=== PATIENT | male | born 2000 | race Two or more races ===

== ENCOUNTER 2023-07-01 12:27 | Emergency (ER) | payer MEDICAID, OTHER ==
[~2023-07-01] VITALS: Ht 177.8 cm; Wt 111.8 kg
[2023-07-01 12:41] VITALS: BP 129/84; PULSE 110; RESP 20; TEMP 97.8; O2SAT 98
[2023-07-01] MEDS ORDERED: cefTRIAXone SOD 1,000 MG VL IM ONE (14:00)
[2023-07-01] MEDS ORDERED: methylPREDNISolone SOD SUCC 125 MG/2 ML VL IM ONE (14:00)
[2023-07-01] MEDS ORDERED: IBUP-1456 PO (14:15)
[2023-07-01] MEDS ORDERED: CEPH500C PO (14:15)
== END 2023-07-01 14:45 | disposition home or self-care (01) ==
LOC: ER 12:27
DX: J03.90 Acute tonsillitis, unspecified (principal); I88.9 Nonspecific lymphadenitis, unspecified
CPT/HCPCS: 96372; 99284; J0696; J2930

== ENCOUNTER 2025-06-03 01:47 | Inpatient (IN) | payer MEDICAID ==
[~2025-06-03] VITALS: Ht 175.3 cm; Wt 120.0 kg
[~2025-06-03 01:47] MED LIST: CEPH500C PO; IBUP-1456 PO
--- NOTE | 2025-06-03 02:19 | ED.PDOC ---
GI ASSESSMENT HPI Comments 25-year-old male with no past medical history presented to the ER with a chief complaint of periumbilical abdominal pain for the past 4 hours, patient reports that he ate some spicy hot dog at around 5:00 p.m. and he started to experience periumbilical abdominal pain, had 2 episodes of vomiting and therefore came into ER. The vomitus was nonbloody. Patient reports that the abdominal pain is achy, denies fever or chills, denies constipation or diarrhea. Denies any sick contacts or traveling history. Denies smoking/drinking/drug use. Patient seen and examined. Periumbilical and lower abdominal tenderness to auscultation. Chief Complaint: Abdominal Pain Time Seen by MD: 02:09 Primary Care Provider: unknown Reviewed Notes: Nurses Notes Allergies: Coded Allergies: NO KNOWN ALLERGIES (Unverified , 03/02/18) Home Meds Active Scripts Ibuprofen (Ibuprofen) 800 Mg Tab, 1 TAB PO TID, #30 TAB Prov:JEREMY HUTCHINSON 07/01/23 Cephalexin Monohydrate (Cephalexin) 500 Mg Cap, 1 CAP PO QID, #32 CAP Prov:JEREMY HUTCHINSON 07/01/23 Information Source: Patient Mode of Arrival: Ambulatory Past Medical History PAST MEDICAL HISTORY: Denies Surgical History: Denies all surgeries Family History Family History: Reviewed,noncontributory to illness Social History Smoker: Non-Smoker Alcohol: Denies ETOH Use Drugs: Denies Drug Use Lives In: Home Constitutional: denies: chills, diaphoresis, fatigue, fever, malaise, sweats, weakness, others EENTM: denies: blurred vision, double vision, ear bleeding, ear discharge, ear drainage, ear pain, ear ringing, eye pain, eye redness, hearing loss, mouth pain, mouth swelling, nasal discharge, nose bleeding, nose congestion, nose pain, photophobia, tearing, throat pain, throat swelling, voice changes, others Respiratory: denies: cough, hemoptysis, orthopnea, SOB at rest, shortness of breath, SOB with excertion, stridor, wheezing, others Cardiovascular: denies: chest pain, dizzy spells, diaphoresis, Dyspnea on exertion, edema, irregular heart beat, left arm pain, lightheadedness, palpitations, PND, syncope, others Gastrointestinal: reports: abdominal pain, nausea, vomiting Genitourinary: denies: burning, dysuria, flank pain, frequency, hematuria, incontinence, penile discharge, penile sore, pain, testicle pain, testicle swelling, urgency, others Neurological: denies: dizziness, fainting, headache, left sided numbness, left sided weakness, numbness, paresthesia, pre-existing deficit, right sided numbness, right sided weakness, seizure, speech problems, tingling, tremors, weakness, others Musculoskeletal: denies: back pain, gout, joint pain, joint swelling, muscle pain, muscle stiffness, neck pain, others Integumetry: denies: bruises, change in color, change in hair/nails, dryness, laceration, lesions, lumps, rash, wounds, others Allergic/Immunocompromised: denies: Difficulty Healing, Frequent Infections, Hives, Itching, others Hematologic/Lymphatic: denies: anemia, blood clots, easy bleeding, easy bruising, swollen glands, others Endocrine: denies: excessive hunger, excessive sweating, excessive thirst, excessive urination, flushing, intolerance to cold, intolerance to heat, unexplained weight gain, unexplained weight loss, others Psychiatric: denies: anxiety, bipolar disorder, depression, hopeless, panic disorder, schizophrenia, sleepless, suicidal, others Physical Exam General Appearance: Mild Distress HEENT: Pharynx Normal Neck: NOT DONE Respiratory: No Accessory Muscle Use, No Respiratory Distress, Normal Breath Sounds Cardiovascular: No Edema, No Murmur Breast Exam: Deferred Gastrointestinal: Tenderness (Lower abdominal), Other (Hypoactive bowel sounds) Genitalia: Deferred Pelvic: Deferred Rectal: Deferred Extremities: No calf tenderness, Normal capillary refill, Normal inspection, Normal range of motion, Non-tender, No pedal edema Neurologic: NOT DONE Cerebellar Function: NOT DONE Reflexes: NOT DONE Skin: Dry Lymphatic: NOT DONE Was a procedure done? Was a procedure done?: No GI differential Dx Differential Diagnosis: Appendicitis, Cholecystitis, Gastritis/PUD, Gastroenteritis, UTI, Food Poisoning X-Ray, Labs, Meds, VS Vital Signs Date Time Temp Pulse Resp B/P (MAP) Pulse Ox O2 Delivery O2 Flow Rate FiO2 06/03/25 04:39 98.0 96 20 103/62 (76) 99 98.0 06/03/25 01:48 97.9 76 16 136/73 100 97.9 Lab Test 06/03/25 02:32 Range/Units White Blood Count 12.2 H 4.4-10.8 10^3/uL Red Blood Count 5.99 H 4.5-5.90 10^6/uL Hemoglobin 15.7 13.5-17.5 g/dL Hematocrit 46.5 41.0-53.0 % Mean Corpuscular Volume 77.6 L 80.0-100.0 fL Mean Corpuscular Hemoglobin 26.2 L 28.0-32.0 pg Mean Corpuscular Hemoglobin Concent 33.7 32.0-36.0 g/dL Red Cell Distribution Width 14.1 11.8-14.3 % Platelet Count 275 140-450 10^3/uL Mean Platelet Volume 7.9 6.9-10.8 fL Neutrophils (%) (Auto) 79.4 37.0-80.0 % Lymphocytes (%) (Auto) 13.4 10.0-50.0 % Monocytes (%) (Auto) 6.3 0.0-12.0 % Eosinophils (%) (Auto) 0.7 0.0-7.0 % Basophils (%) (Auto) 0.2 0.0-2.0 % Neutrophils # (Auto) 9.7 H 1.6-8.6 10 ^3/uL Lymphocytes # (Auto) 1.6 0.4-5.4 10 ^3/uL Monocytes # (Auto) 0.8 0-1.3 10 ^3/uL Eosinophils # (Auto) 0.1 0-0.8 10 ^3/uL Basophils # (Auto) 0 0-0.2 10 ^3/uL Nucleated Red Blood Cells 0.0 % Prothrombin Time Pending Prothrombin Time INR Pending Activated Partial Thromboplast Time Pending Sodium Level 142 136-145 mmol/L Potassium Level 3.7 3.5-5.1 mmol/L Chloride Level 103 98-107 mmol/L Carbon Dioxide Level 27 20-31 mmol/L Anion Gap 12 5-15 Blood Urea Nitrogen 12 9-23 mg/dL Creatinine 0.99 0.700-1.30 mg/dL Glomerular Filtration Rate Calc 108 >90 mL/min BUN/Creatinine Ratio 12.1 10.0-20.0 Serum Glucose 128 H 74-106 mg/dL Lactic Acid Level 1.7 0.4-2.0 mmol/L Calcium Level 9.9 8.7-10.4 mg/dL Total Bilirubin 0.6 0.2-1.0 mg/dL Aspartate Amino Transferase (AST) 37 13-40 U/L Alanine Aminotransferase (ALT) 87 H 7-40 U/L Alkaline Phosphatase 66 46-116 U/L Total Protein 7.7 5.7-8.2 g/dL Albumin 4.9 H 3.2-4.8 g/dL Lipase 27 12-53 U/L X-Ray, Labs, Meds, VS Comment CT abdomen shows 1. Findings are consistent with acute appendicitis. 2. No evidence of perforation or periappendiceal abscess. Images Reviewed?: Images reviewed and evaluated by me Time of 1ST Reevaluation: 03:00 Reevaluation 1ST: Unchanged Consultation: PCP Patient Education/Counseling: Diagnosis, Treatment Family Education/Counseling: No Family Present SEPSIS Sepsis Screen Date sepsis recognized/suspect: Jun 03, 2025 Time Sepsis recognized/suspect: 015 Recent Procedure: No On Antibiotic Therapy: No Respiratory Rate >20: No Heart Rate >90: No Temp<36 C (96.8 F) or >38.3 C: No SBP <90 or MAP <65 mmHG: No New Acute Mental Status Change: No Is the patient on CPAP, BIPAP,: No Physician Orders Ct Ab Pel Wo Con-No Oral Or Iv (06/03/25 03:19) * Surgical Consult (06/03/25 ) Type And Screen (06/03/25 04:09) PTPTT (06/03/25 04:10) Ceftriaxone 2gm/50ml (Rocephin 2gm/50ml) (06/03/25 04:15) Metronidazole 500mg/100ml (Flagyl 500mg/ (06/03/25 04:15) Npo (Nothing By Mouth) Diet (06/03/25 Breakfast) Sodium Chloride 0.9% (06/03/25 04:15) Paring Machine Operator (06/03/25 ) Vital Signs Date Time Temp Pulse Resp B/P (MAP) Pulse Ox O2 Delivery O2 Flow Rate FiO2 06/03/25 04:39 98.0 96 20 103/62 (76) 99 98.0 06/03/25 01:48 97.9 76 16 136/73 100 97.9 Laboratory Tests Test 06/03/25 02:32 Lactic Acid Level 1.7 mmol/L (0.4-2.0) White Blood Count 12.2 10^3/uL (4.4-10.8) H Departure 1 Departure Time of Disposition: 04:55 Impression: Primary Impression: Appendicitis Disposition: 09 ADMITTED INPATIENT Condition: Stable Comments Patient admitted for further workup and surgical evaluation for acute appendicitis Medical management-IV NS, IV ceftriaxone 2 g given, metronidazole IV 500 mg NPO/type and screen/PT/PTT pending Critical Care Note Critical Care Time?: No Stability Stability form required: PETRA Nash RESIDENT Jun 03, 2025 02:19
[2025-06-03 02:56] LABS: Hemoglobin 15.7 g/dL (13.5-17.5)
[2025-06-03 02:59] LABS: Hematocrit 46.5 % (41.0-53.0); Mean Corpuscular Hemoglobin 26.2 pg (28.0-32.0); Mean Corpuscular Volume 77.6 fL (80.0-100.0); Nucleated Red Blood Cells % 0.0 %
[2025-06-03 03:11] LABS: Alkaline Phosphatase 66 U/L (46-116); Anion Gap 12 (5-15); BUN/Creatinine Ratio 12.1 (10.0-20.0); Bilirubin, Total 0.6 mg/dL (0.2-1.0); Blood Urea Nitrogen 12 mg/dL (9-23); Calcium 9.9 mg/dL (8.7-10.4); Carbon Dioxide 27 mmol/L (20-31); Chloride 103 mmol/L (98-107); Lipase 27 U/L (12-53); Potassium 3.7 mmol/L (3.5-5.1); Sodium 142 mmol/L (136-145); Total Protein 7.7 g/dL (5.7-8.2)
[2025-06-03 03:20] LABS: Alanine Aminotransferase 87 U/L (7-40); Albumin 4.9 g/dL (3.2-4.8); Glucose 128 mg/dL (74-106)
--- NOTE | 2025-06-03 04:08 | DVH ---
Exam: CT CT AB PEL WO CON-NO ORAL OR IV History: abdominal pain Comparison Study: None Technique: Multidetector spiral CT of the abdomen was performed from lung bases to pubic symphysis. I maging was performed without IV contrast. Axial, coronal and sagittal multiplanar reformats were obta ined from the axial data set by the technologist. Radiation Dose : 1. Abdomen/Pelvis: CTDIvol 25.22 mGy, DLP 1484.92 mGy*cm. Findings: Evaluation of solid organs is limited due to lack of intravenous contrast use. Lung Bases: No acute or significant lung base finding. Normal heart size. No pleural or pericardial effusion. Liver: The liver is normal in size. No focal lesions. Gallbladder and Biliary Tree: Unremarkable Spleen: Unremarkable Pancreas: The pancreas is grossly normal in appearance. Adrenal Glands: Unremarkable Kidneys: Kidneys are grossly normal without calculi or hydronephrosis. Bladder: Grossly unremarkable for degree of distention. Bowel: The stomach is grossly normal in appearance. Small bowel and colon are normal in caliber and d istribution. The appendix is dilated measuring up to 2.3 cm with a proximal appendicolith, consistent with acute appendicitis. No evidence of perforation or periappendiceal abscess. Ascites: Absent Lymphadenopathy: No mesenteric, retroperitoneal or periportal lymphadenopathy. Abdominal Wall and Mesentery: Unremarkable. Vasculature: The visualized abdominal aorta is normal in size and caliber. Evaluation of abdominal a nd pelvic vessels is limited due to lack of intravenous contrast. Pelvic Organs: Unremarkable Musculoskeletal: No aggressive focal bony lesions, acute fractures or dislocation. Hardware within th e right proximal femur status post ORIF. IMPRESSION: 1. Findings are consistent with acute appendicitis. 2. No evidence of perforation or periappendiceal abscess. Critical Result: Acute uncomplicated appendicitis Findings discussed with PETRA ROBERTSON at 06/03/2025 07:05 AM EST, and acknowledged receipt and understa nding of the findings. Radiation optimization: All CT scans at this facility use at least one of these dose optimization te chniques: automated exposure control mA and/or kV adjustment per patient size (includes targeted exa ms where dose is matched to clinical indication) or iterative reconstruction.
[2025-06-03 05:05] LABS: INR 1.03 (0.9-1.15); Partial Thromboplastin Time 28.0 SEC (24.5-34.5); Prothrombin Time 10.9 sec (9.3-11.8)
[2025-06-03] MEDS: ONDANSETRON HCL 4 MG/2 ML VIAL IM ONE (05:32)
[2025-06-03] MEDS: PANTOPRAZOLE 40 MG TAB PO ONE (05:40)
[2025-06-03] MEDS: PANTOPRAZOLE 40 MG/10 ML VIAL INJ IV ONE (05:50)
[2025-06-03] MEDS: METOCLOPRAMIDE HCL 5MG/ml INJ 2ml VIAL IV ONE (05:50)
[2025-06-03] MEDS: KETOROLAC TROMETH 30 MG/ML 1ML VIAL IV ONE (05:50)
--- NOTE | 2025-06-03 05:58 | DVHHPRES ---
History of Present Illness Resident Creating Document: MADISYN HERNÁNDEZ History of Present Illness Neil Castellanos is a 25-year-old male patient who presents to the ED with chief complaint of epigastric stabbing abdominal pain intensity 10/10 which then radiated to right lower quadrant, started on 06/02/2025 at 8:00 p.m., not related with food intake, associated later with nausea and vomiting with nonbloody emesis (had food content). Pain lasted until patient presented to the ED where he was given IV analgesics improving his pain to 6/10. Patient denies any other associated symptoms including fever, chills, diarrhea, recent travel, changing his diet and sick contacts. Past medical history: Denies Surgical history: Right femur repair after trauma Family history: Denies Social history: Lives in [place] with family (next of kin ). Denies current tobacco, alcohol and other drug abuse. Allergies: Denies Home medication: Denies Patient seen and examined at bedside. Currently has no new complaints. Patient was admitted for further evaluation Past Medical History Per HPI Past Surgical History Per HPI Family History Per HPI Past Social History Per HPI Review of Systems Review of Systems Per HPI Allergies: Coded Allergies: NO KNOWN ALLERGIES (Unverified , 03/02/18) Exam Vital Signs Vital Signs Date Time Temp Pulse Resp B/P (MAP) Pulse Ox O2 Delivery O2 Flow Rate FiO2 06/03/25 04:39 98.0 96 20 103/62 (76) 99 98.0 Exam Patient lying in bed, in no acute distress General: Lucid, afebrile, mucosae are moist Cardiovascular: Normal S1 and S2. No murmurs, gallops or rubs Respiratory: Normal ventilation mechanics. Clear lung sounds on auscultation Abdomen: Soft, tenderness in epigastric in McBurney point, rest of abdomen nontender, no organomegaly, normal bowel sounds MSK/skin: Mobilizes 4 limbs. Skin is dry and warm Neurological: Oriented in 3 spheres. No motor no sensitive deficits. Pupils are isocoric and reactive Labs/Xrays Labs Test 06/03/25 02:32 Range/Units White Blood Count 12.2 H 4.4-10.8 10^3/uL Red Blood Count 5.99 H 4.5-5.90 10^6/uL Hemoglobin 15.7 13.5-17.5 g/dL Hematocrit 46.5 41.0-53.0 % Mean Corpuscular Volume 77.6 L 80.0-100.0 fL Mean Corpuscular Hemoglobin 26.2 L 28.0-32.0 pg Mean Corpuscular Hemoglobin Concent 33.7 32.0-36.0 g/dL Red Cell Distribution Width 14.1 11.8-14.3 % Platelet Count 275 140-450 10^3/uL Mean Platelet Volume 7.9 6.9-10.8 fL Neutrophils (%) (Auto) 79.4 37.0-80.0 % Lymphocytes (%) (Auto) 13.4 10.0-50.0 % Monocytes (%) (Auto) 6.3 0.0-12.0 % Eosinophils (%) (Auto) 0.7 0.0-7.0 % Basophils (%) (Auto) 0.2 0.0-2.0 % Neutrophils # (Auto) 9.7 H 1.6-8.6 10 ^3/uL Lymphocytes # (Auto) 1.6 0.4-5.4 10 ^3/uL Monocytes # (Auto) 0.8 0-1.3 10 ^3/uL Eosinophils # (Auto) 0.1 0-0.8 10 ^3/uL Basophils # (Auto) 0 0-0.2 10 ^3/uL Nucleated Red Blood Cells 0.0 % Prothrombin Time 10.9 9.3-11.8 sec Prothrombin Time INR 1.03 0.9-1.15 Activated Partial Thromboplast Time 28.0 24.5-34.5 SEC Sodium Level 142 136-145 mmol/L Potassium Level 3.7 3.5-5.1 mmol/L Chloride Level 103 98-107 mmol/L Carbon Dioxide Level 27 20-31 mmol/L Anion Gap 12 5-15 Blood Urea Nitrogen 12 9-23 mg/dL Creatinine 0.99 0.700-1.30 mg/dL Glomerular Filtration Rate Calc 108 >90 mL/min BUN/Creatinine Ratio 12.1 10.0-20.0 Serum Glucose 128 H 74-106 mg/dL Lactic Acid Level 1.7 0.4-2.0 mmol/L Calcium Level 9.9 8.7-10.4 mg/dL Total Bilirubin 0.6 0.2-1.0 mg/dL Aspartate Amino Transferase (AST) 37 13-40 U/L Alanine Aminotransferase (ALT) 87 H 7-40 U/L Alkaline Phosphatase 66 46-116 U/L Total Protein 7.7 5.7-8.2 g/dL Albumin 4.9 H 3.2-4.8 g/dL Lipase 27 12-53 U/L SEPSIS Sepsis Screen Date sepsis recognized/suspect: Jun 03, 2025 Time Sepsis recognized/suspect: 015 Recent Procedure: No On Antibiotic Therapy: No Respiratory Rate >20: No Heart Rate >90: No Temp<36 C (96.8 F) or >38.3 C: No SBP <90 or MAP <65 mmHG: No New Acute Mental Status Change: No Is the patient on CPAP, BIPAP,: No Physician Orders Ct Ab Pel Wo Con-No Oral Or Iv (06/03/25 03:19) * Surgical Consult (06/03/25 ) Type And Screen (06/03/25 04:09) Npo (Nothing By Mouth) Diet (06/03/25 Breakfast) Staffing And Scheduling Coordinator (06/03/25 ) Electrocardigram (06/03/25 05:31) Admit (06/03/25 05:53) Code Status (06/03/25 05:53) Acetaminophen Tablet (Tylenol Tablet) (06/03/25 06:00) Ondansetron Hcl (Zofran) (06/03/25 06:00) Morphine Sulfate Injection (06/03/25 06:00) Lovenox 40mg (06/03/25 10:00) Oxygen By Nasal Cannula (06/03/25 05:53) Stat Ekg For Chest Pain (06/03/25 05:53) Notify Md Of Changes From Base (06/03/25 05:53) Telecommunications Manager For 24 Hours (06/03/25 05:53) Emergency Dysrhythmia Protocol (06/03/25 05:53) Rhythm Strips Once Every Shift (06/03/25 05:53) Vitamin D, 25-Hydroxy (06/03/25 05:53) Vitamin B12 (06/03/25 05:53) Urinalysis (06/03/25 05:53) Thyroid Stimulating Hormone (06/03/25 05:53) Phosphorus (06/03/25 05:53) Magnesium (06/03/25 05:53) Lipid Panel (06/03/25 05:53) Hemoglobin A1c (06/03/25 05:53) Drug Screen (06/03/25 05:53) NS (06/03/25 06:00) NS (06/03/25 06:00) Vital Signs Date Time Temp Pulse Resp B/P (MAP) Pulse Ox O2 Delivery O2 Flow Rate FiO2 06/03/25 04:39 98.0 96 20 103/62 (76) 99 98.0 06/03/25 01:48 97.9 76 16 136/73 100 97.9 Laboratory Tests Test 06/03/25 02:32 Lactic Acid Level 1.7 mmol/L (0.4-2.0) White Blood Count 12.2 10^3/uL (4.4-10.8) H Medications Medications Dose Ordered Sig/Alejandra Route Start Time Stop Time Status Last Admin Dose Admin Ketorolac Tromethamine 30 mg ONCE ONCE IV 06/03/25 05:45 06/03/25 05:46 DC 06/03/25 05:50 30 MG Metoclopramide HCl 5 mg ONCE ONCE IV 06/03/25 05:45 06/03/25 05:46 DC 06/03/25 05:50 5 MG Metronidazole 100 ml @ 100 mls/hr ONCE ONCE IV 06/03/25 04:15 06/03/25 05:14 DC 06/03/25 05:38 100 MLS/HR Ondansetron HCl 4 mg ONCE ONCE IM 06/03/25 02:30 06/03/25 02:31 DC 06/03/25 05:32 4 MG Pantoprazole Sodium 40 mg ONCE ONCE IV 06/03/25 05:45 06/03/25 05:46 DC 06/03/25 05:50 40 MG Assessment/Plan Assessment/Plan Acute non complicated appendicitis Transaminitis Ordered abdomen and pelvis CT which showed acute appendicitis, with no abscess or other complications. Patient is currently NPO for bowel rest On empiric IV antibiotic (ceftriaxone and metronidazole) Consulted surgery Vitamin-D deficiency Replenish Hypophosphatemia Replenish Dyslipidemia LDL 131 ASCVD score low risk, no indication for statins at this point. Gave advice on healthy lifestyle habits Goals of care discussed with patient for over 18 minutes: Full code status Discussed plan with Dr. Patel, patient and nurses: [facility] Currently under empiric IV antibiotics. Consulted surgery to evaluate need of appendectomy. Plan discussed with: Patient, Other (Nurses) My Orders Orders - MADISYN HERNÁNDEZ RESIDENT Procedure Category Date Status Time Admit ADMIT 06/03/25 Transmitted 05:53 Code Status CODE 06/03/25 Transmitted 05:53 Acetaminophen Tablet [facility] 06/03/25 Transmitted (Tylenol Tablet) 06:00 Ondansetron Hcl [facility] 06/03/25 Transmitted (Zofran) 06:00 Morphine Sulfate [facility] 06/03/25 Transmitted Injection 06:00 Lovenox 40mg [facility] 06/03/25 Transmitted 10:00 Oxygen By Nasal RT 06/03/25 Transmitted Cannula 05:53 Stat Ekg For Chest [facility] 06/03/25 Transmitted Pain 05:53 Notify Md Of Changes [facility] 06/03/25 Transmitted From Base 05:53 Telecommunications Manager For [facility] 06/03/25 Transmitted 24 Hours 05:53 Emergency Dysrhythmia [facility] 06/03/25 Transmitted Protocol 05:53 Rhythm Strips Once [facility] 06/03/25 Transmitted Every Shift 05:53 Vitamin D, 25-Hydroxy LAB 06/03/25 Transmitted 05:53 Vitamin B12 LAB 06/03/25 Transmitted 05:53 Urinalysis LAB 06/03/25 Transmitted 05:53 Thyroid Stimulating LAB 06/03/25 Transmitted Hormone 05:53 Phosphorus LAB 06/03/25 Transmitted 05:53 Magnesium LAB 06/03/25 Transmitted 05:53 Lipid Panel LAB 06/03/25 Transmitted 05:53 Hemoglobin A1c LAB 06/03/25 Transmitted 05:53 Drug Screen LAB 06/03/25 Transmitted 05:53 NS PHA 06/03/25 Transmitted 06:00 NS [facility] 06/03/25 Transmitted 06:00 Date of Service: Jun 03, 2025 Billing Provider: CAMPOS DUARTE MD Common Visit Codes: [id number] INP/OBS CARE (HIGH) Secondary Visit Codes: [id number] CARE PLAN 30 MINUTES MADISYN HERNÁNDEZ RESIDENT Jun 03, 2025 05:58
[2025-06-03] MEDS ORDERED: ACETAMINOPHEN 325 MG TAB PO PRN (06:00)
[2025-06-03] MEDS: SODIUM CHLORIDE 0.9% 1,000 ML IV SCH (06:00)
[2025-06-03] MEDS ORDERED: MORPHINE SULFATE INJ 2 MG/ml SYRG IV PRN (06:00)
[2025-06-03] MEDS ORDERED: ONDANSETRON HCL 4 MG/2 ML VIAL IV PRN (06:00)
[2025-06-03 06:39] LABS: Triglycerides 76.0 mg/dL (< 150)
[2025-06-03 06:40] LABS: Magnesium 1.9 mg/dL (1.6-2.6)
[2025-06-03 06:41] LABS: Cholesterol 174.0 mg/dL (< 200); HDL Cholesterol 43.0 mg/dL (40-59)
[2025-06-03] MEDS: SODIUM CHLORIDE 0.9% 1,000 ML IV ONE ×2 (09:20→09:27)
[2025-06-03] MEDS: ENOXAPARIN SOD 40 MG/0.4 ML SYRINGE SC SCH (09:24)
[2025-06-03] MEDS ORDERED: POTASSIUM PHOSPHATE 22 MEQ in SODIUM CHL 0.9% 100 ML IV ONE (11:15)
[2025-06-03] MEDS: ERGOCALCIFEROL 50,000 UNIT(1.25MG) CAP PO SCH (11:58)
[2025-06-03] MEDS: HYDROmorphone HCL 2 MG/ML VL/or syr IV PRN (15:04)
--- NOTE | 2025-06-03 16:19 | DVHPNRES ---
Progress Note Date Seen: Jun 03, 2025 Resident Creating Document: KAROLYN JOSEPH RESIDENT Medical Necessity Reason Pt with a Central, PICC or Fol: No Subjective Review of Systems Neil Castellanos is a 25-year-old male patient who presents to the ED with chief complaint of epigastric stabbing abdominal pain intensity 10/10 which then radiated to right lower quadrant, started on 06/02/2025 at 8:00 p.m., not related with food intake, associated later with nausea and vomiting with nonbloody emesis (had food content). Pain lasted until patient presented to the ED where he was given IV analgesics improving his pain to 6/10. Patient denies any other associated symptoms including fever, chills, diarrhea, recent travel, changing his diet and sick contacts. She lab workup revealed leukocytosis with WBC 12.2, with the abdomen and pelvis revealed- Findings are consistent with acute appendicitis. No evidence of perforation or periappendiceal abscess. Past medical history: Denies Surgical history: Right femur repair after trauma Family history: Denies Social history: Lives in [place] with family (next of kin ). Denies current tobacco, alcohol and other drug abuse. Allergies: Denies Home medication: Denies Patient is seen today at bedside, labs and chart reviewed. Patient reported abdominal pain. NPO. Pending surgery consult for further evaluation and care. Patient ceftriaxone and metronidazole and IV fluid. Objective vital signs Vital Sign Date Time Temp Pulse Resp B/P (MAP) Pulse Ox O2 Delivery O2 Flow Rate FiO2 06/03/25 15:04 83 18 134/70 (91) 100 06/03/25 04:39 98.0 98.0 medications Current Medications Medications Dose Ordered Sig/Alejandra Route Start Time Stop Time Status Last Admin Dose Admin Acetaminophen 325 mg Q4HP PRN PO 06/03/25 06:00 Ondansetron HCl 4 mg Q4HP PRN IV 06/03/25 06:00 Enoxaparin Sodium 40 mg DAILY SC 06/03/25 10:00 Sodium Chloride 1,000 ml @ 100 mls/hr Q10H IV 06/03/25 06:00 Ceftriaxone Sodium 50 ml @ 100 mls/hr DAILY@09 IV 06/03/25 09:00 06/03/25 09:27 100 MLS/HR Metronidazole 100 ml @ 100 mls/hr Q8HR IV 06/03/25 09:00 06/03/25 09:48 100 MLS/HR Ergocalciferol 50,000 unit Q7D PO 06/03/25 11:15 06/03/25 11:58 50,000 UNIT Hydromorphone HCl 0.25 mg Q4HPRN PRN IV 06/03/25 14:30 06/03/25 15:04 0.25 MG Examination General examination- awake, alert, oriented HEENT- PEERLA, no acute nasal discharge Cardiovascular- S1-S2 audible, rate and rhythm regular, no murmur Respiratory- CTAB, no wheeze or rhonchi Gastrointestinal-abdominal++ tenderness, bowel sound+. Nondistended Musculoskeletal-no acute joint swelling or tenderness or redness Lower extremity- no leg edema Neurological- cranial nerves intact, no acute dysarthria or dysphagia Psychiatry- denies depression or SI or HI Skin- no acute rash or purpura laboratory and microbiology Laboratory Tests 06/03/25 02:32 Test 06/03/25 02:32 Range/Units Serum Glucose 128 H 74-106 mg/dL Problem List/Assessment/Plan Problem List/Assessment/Plan Assessment and plan # Acute non complicated appendicitis #Transaminitis -abdomen and pelvis CT which showed acute appendicitis, with no abscess or other complications. Patient is currently NPO for bowel rest On empiric IV antibiotic (ceftriaxone and metronidazole) -pending surgery consult for further evaluation and care #Vitamin-D deficiency Replenish #Hypophosphatemia Replenish #Dyslipidemia LDL 131 ASCVD score low risk, no indication for statins at this point. Patient was counseled about lifestyle modification Goals of care, Code status FULL CODE ; discussed with >15 minutes PUD prophylaxis: Pantoprazole DVT prophylaxis: SCD Plan discussed with Dr. Zaman , nursing staff, Total time spent on patient evaluation, chart review, assessment and plan, discussion discussion >35 minutes Plan discussed with: Patient, Other (RN) My Orders My Orders Orders - KAROLYN JOSEPH RESIDENT Procedure Category Date Status Time Ceftriaxone 1gm/50ml PHA 06/03/25 In Process (Rocephin) 09:00 Metronidazole PHA 06/03/25 In Process 500mg/100ml (Flagyl 09:00 Complete Blood Count LAB 06/04/25 Verified 04:00 Comprehensive LAB 06/04/25 Verified Metabolic Panel 04:00 Magnesium LAB 06/04/25 Verified 04:00 Date of Service: Jun 03, 2025 Billing Provider: KAROLYN JOSEPH MOHAMMED RESIDENT Jun 03, 2025 16:19
[2025-06-03 17:00] VITALS: BP 134/72; PULSE 110; RESP 18; TEMP 100; O2SAT 99
[2025-06-03] MEDS ORDERED: HYDROmorphone HCL 2 MG/ML VL/or syr ONE (18:06)
[2025-06-03] MEDS ORDERED: GLYCOPYRROLATE 0.2 MG/ML 1ML VIAL ONE (18:06)
[2025-06-03] MEDS ORDERED: MIDAZOLAM HCL 2MG/2ML 2ml VIAL (1mg/ml) ONE (18:06)
[2025-06-03] MEDS ORDERED: PROPOFOL 10 MG/ML 20 ML IV ONE (18:06)
[2025-06-03] MEDS ORDERED: KETOROLAC TROMETH 30 MG/ML 1ML VIAL ONE (18:06)
[2025-06-03] MEDS ORDERED: ROCURONIUM 10MG/ML 10ML VIAL IV ONE (18:06)
[2025-06-03] MEDS ORDERED: fentaNYL CITRATE 100 MCG/2 ML VL ONE (18:06)
[2025-06-03] MEDS ORDERED: ONDANSETRON HCL 4 MG/2 ML VIAL ONE (18:06)
[2025-06-03] MEDS: ceFAZolin 2 GM/D5W50ml 50 ML IV ONE (19:00)
[2025-06-03] MEDS ORDERED: SUGAMMADEX 200mg/2ml Vial (100MG/ML) IV ONE (19:20)
[2025-06-03] MEDS: BUPIVACAINE HCL 0.25% P/F 10 ML VIAL ONE (19:35)
--- NOTE | 2025-06-03 19:46 | DVHOP2 ---
Operative Report [id number] AC APPENDICITIS INTRA ABD ABSCESS DRAIN INTRABD ABSCESS LAP APPENDECTOMY EBL 5 CC NO DRAINS NO COMPLICATIONS STABLE TRANSFER TO RECOVERY ROOM ELIU LENNON MD Jun 03, 2025 19:46
[2025-06-03 19:47] VITALS: PULSE 123; RESP 23; O2SAT 100
[2025-06-03] MEDS ORDERED: HYDROmorphone HCL 2 MG/ML VL/or syr IV PRN (20:00)
--- NOTE | 2025-06-03 20:15 | DVHOP ---
DATE OF SURGERY: 06/03/2025 PREOPERATIVE DIAGNOSIS: Acute appendicitis with intraabdominal abscess. POSTOPERATIVE DIAGNOSIS: Acute appendicitis with intraabdominal abscess. PROCEDURE: Drainage of intraabdominal abscess with laparoscopic appendectomy. SURGEON: Rio Frederick MD NEONATAL ICU COORDINATOR: None. ANESTHESIA: General. BLOOD LOSS: Close to 5 mL. DRAINS: No drains were used. COMPLICATIONS: No complications were encountered. DESCRIPTION OF PROCEDURE: The patient was prepped and draped in the usual sterile fashion in the supine position. A supraumbilical incision was applied. It was taken down to the fascia. The Veress needle was introduced and CO2 insufflation was started at a pressure of 15 mmHg. The needle was withdrawn and replaced by a 12 mm trocar and the telescope was introduced and the appendix was found to be acutely inflamed and distended with intraabdominal localized abscess formation and two 5 mm ports were applied more inferiorly, one above the symphysis and the third midway between the upper two. The patient was then placed in Trendelenburg and right lateral decubitus position. The camera was moved to the lowermost 5 mm port. The upper 2 ports were used for the surgery. The mesoappendix was identified. The base of the appendix was identified and transected using the Endo DANUTA stapling device. The mesoappendix was clipped at the base and divided distal to that using the Harmonic device. The appendix was released in this fashion and was retrieved from the supraumbilical wound in an EndoCatch bag without any complication. Hemostasis was secured. Irrigation fluid was removed. All the port sites were free from bleeding. EndoClose suture was used for the fascial closure of the supraumbilical wound. All the ports were withdrawn after all the CO2 was let out and the patient was placed in supine. The wounds were then brought together using 3-0 Monocryl suture in a subcuticular fashion. Surgical glue was applied. The patient tolerated the procedure well, was taken back to the recovery room in stable condition. MD HANSA Covarrubias/REFUGIO TID: [id number] RECEIPT: [id number] cc: KAROLYN JOSEPH
[2025-06-03] MEDS: ACETAMINOPHEN IV 1000 MG/100ML (10MG/ML) IV ONE (20:34)
[2025-06-03 20:35] VITALS: PULSE 129; RESP 16; O2SAT 98
[2025-06-03] MEDS: ACETAMINOPHEN IV 100 ML IV ONE (20:37)
[2025-06-03] MEDS: ONDANSETRON HCL 4 MG/2 ML VIAL IV PRN (20:38)
[2025-06-03 21:00] VITALS: BP 137/82; PULSE 127; RESP 18; TEMP 98.6; O2SAT 96
[2025-06-03] MEDS: POTASSIUM PHOSPHATE 22 MEQ in SODIUM CHL 0.9% 100 ML IV ONE (21:45)
[2025-06-03 22:32] VITALS: BP 137/82; PULSE 127; RESP 19; TEMP 98.6; O2SAT 96
--- NOTE | 2025-06-03 22:59 | ECG ---
[facility] Test Date: 2025-06-03 Test Time: 22:57:24 Pat Name: ARNAV GLASER Department: Room: 0270 A Gender: M Landscape Technician: RODRI : 2000 Requested By: PETRA ROBRETSON Order Number: [id number] Reading MD: Kayode Morgan Measurements Intervals [place] Rate: 114 P: 49 IA: 143 QRS: 70 QRSD: 109 T: 0 QT: 347 QTc: 478 Interpretive Statements Sinus tachycardia Abnormal inferior Q waves Borderline prolonged QT interval Electronically Signed On 06-04-2025 15:05:57 PDT by Kayode Morgan Please click the below link to view image of tracing.
[2025-06-03 23:54] LABS: Hematocrit 43.2 % (41.0-53.0); Hemoglobin 14.4 g/dL (13.5-17.5); Mean Corpuscular Hemoglobin 26.2 pg (28.0-32.0); Mean Corpuscular Volume 78.8 fL (80.0-100.0); Nucleated Red Blood Cells % 0.0 %
[2025-06-04] VITALS (8 sets, daily range): BP systolic 110–127; BP diastolic 62–77; PULSE 67–111; RESP 18–20; TEMP 97.8–98.6; O2SAT 96–100
[2025-06-04 00:09] LABS: Albumin 4.6 g/dL (3.2-4.8); Alkaline Phosphatase 58 U/L (46-116); Anion Gap 11 (5-15); BUN/Creatinine Ratio 10.2 (10.0-20.0); Bilirubin, Total 0.9 mg/dL (0.2-1.0); Blood Urea Nitrogen 11 mg/dL (9-23); Calcium 9.3 mg/dL (8.7-10.4); Carbon Dioxide 26 mmol/L (20-31); Potassium 4.2 mmol/L (3.5-5.1); Sodium 145 mmol/L (136-145); Total Protein 7.1 g/dL (5.7-8.2)
[2025-06-04 00:25] LABS: Alanine Aminotransferase 61 U/L (7-40); Chloride 108 mmol/L (98-107); Glucose 127 mg/dL (74-106)
[2025-06-04] MEDS: SODIUM CHLORIDE 0.9% 1,000 ML IV ONE ×2 (01:04→01:33)
[2025-06-04 06:42] LABS: Hematocrit 40.5 % (41.0-53.0); Hemoglobin 13.6 g/dL (13.5-17.5); Mean Corpuscular Hemoglobin 26.4 pg (28.0-32.0); Mean Corpuscular Volume 78.6 fL (80.0-100.0); Nucleated Red Blood Cells % 0.0 %
[2025-06-04 07:02] LABS: Alkaline Phosphatase 51 U/L (46-116); Anion Gap 10 (5-15); BUN/Creatinine Ratio 12.0 (10.0-20.0); Blood Urea Nitrogen 12 mg/dL (9-23); Carbon Dioxide 25 mmol/L (20-31); Magnesium 2.1 mg/dL (1.6-2.6); Potassium 4.2 mmol/L (3.5-5.1); Sodium 144 mmol/L (136-145); Total Protein 6.4 g/dL (5.7-8.2)
[2025-06-04 07:04] LABS: Albumin 4.2 g/dL (3.2-4.8); Bilirubin, Total 0.8 mg/dL (0.2-1.0)
[2025-06-04 07:05] LABS: Alanine Aminotransferase 54 U/L (7-40); Calcium 8.7 mg/dL (8.7-10.4); Chloride 109 mmol/L (98-107); Glucose 122 mg/dL (74-106)
[2025-06-04] MEDS ORDERED: KETAMINE 50mg/ML 1ml syringe IM ONE (14:10)
--- NOTE | 2025-06-04 15:51 | DVHPNRES ---
Progress Note Date Seen: Jun 04, 2025 Resident Creating Document: KAROLYN JOSEPH RESIDENT Medical Necessity Reason Pt with a Central, PICC or Fol: No Subjective Review of Systems Neil Castellanos is a 25-year-old male patient who presents to the ED with chief complaint of epigastric stabbing abdominal pain intensity 10/10 which then radiated to right lower quadrant, started on 06/02/2025 at 8:00 p.m., not related with food intake, associated later with nausea and vomiting with nonbloody emesis (had food content). Pain lasted until patient presented to the ED where he was given IV analgesics improving his pain to 6/10. Patient denies any other associated symptoms including fever, chills, diarrhea, recent travel, changing his diet and sick contacts. She lab workup revealed leukocytosis with WBC 12.2, with the abdomen and pelvis revealed- Findings are consistent with acute appendicitis. No evidence of perforation or periappendiceal abscess. Past medical history: Denies Surgical history: Right femur repair after trauma Family history: Denies Social history: Lives in [place] with family (next of kin ). Denies current tobacco, alcohol and other drug abuse. Allergies: Denies Home medication: Denies Patient is seen today at bedside, labs and chart reviewed. Patient is status post laparoscopic appendectomy. Reported passing gas. Change diet to clear liquid diet. Objective vital signs Vital Sign Date Time Temp Pulse Resp B/P (MAP) Pulse Ox O2 Delivery O2 Flow Rate FiO2 06/04/25 13:00 98.1 76 20 111/69 (83) 99 98.1 06/04/25 08:00 Nasal Cannula* 2 28 Total Intake and Output 06/03/25 06/03/25 06/04/25 15:00 23:00 07:00 Intake Total 1150 ml 150 ml 2315 ml Output Total 2100 ml Balance 1150 ml 150 ml 215 ml medications Current Medications Medications Dose Ordered Sig/Alejandra Route Start Time Stop Time Status Last Admin Dose Admin Acetaminophen 325 mg Q4HP PRN PO 06/03/25 06:00 Ondansetron HCl 4 mg Q4HP PRN IV 06/03/25 06:00 Sodium Chloride 1,000 ml @ 100 mls/hr Q10H IV 06/03/25 06:00 06/04/25 12:10 100 MLS/HR Ceftriaxone Sodium 50 ml @ 100 mls/hr DAILY@09 IV 06/03/25 09:00 06/04/25 09:25 100 MLS/HR Metronidazole 100 ml @ 100 mls/hr Q8HR IV 06/03/25 09:00 06/04/25 14:04 100 MLS/HR Ergocalciferol 50,000 unit Q7D PO 06/03/25 11:15 06/03/25 11:58 50,000 UNIT Hydromorphone HCl 0.25 mg Q4HPRN PRN IV 06/03/25 14:30 06/03/25 15:04 0.25 MG Examination General examination- awake, alert, oriented HEENT- PEERLA, no acute nasal discharge Cardiovascular- S1-S2 audible, rate and rhythm regular, no murmur Respiratory- CTAB, no wheeze or rhonchi Gastrointestinal-abdominal++ tenderness, bowel sound+. Nondistended Musculoskeletal-no acute joint swelling or tenderness or redness Lower extremity- no leg edema Neurological- cranial nerves intact, no acute dysarthria or dysphagia Psychiatry- denies depression or SI or HI Skin- no acute rash or purpura laboratory and microbiology Laboratory Tests 06/04/25 05:47 Test 06/04/25 05:47 Range/Units Serum Glucose 122 H 74-106 mg/dL Problem List/Assessment/Plan Problem List/Assessment/Plan Assessment and plan # Acute non complicated appendicitis #Transaminitis -abdomen and pelvis CT which showed acute appendicitis, with no abscess or other complications. Patient is currently NPO for bowel rest On empiric IV antibiotic (ceftriaxone and metronidazole) -pending surgery consult for further evaluation and care #Vitamin-D deficiency Replenish #Hypophosphatemia Replenish #Dyslipidemia LDL 131 ASCVD score low risk, no indication for statins at this point. Patient was counseled about lifestyle modification Goals of care, Code status FULL CODE ; discussed with >15 minutes PUD prophylaxis: Pantoprazole DVT prophylaxis: lovenix Plan discussed with Dr. Bauer , nursing staff, Total time spent on patient evaluation, chart review, assessment and plan, discussion discussion >35 minutes Plan discussed with: Patient, Other (RN) My Orders My Orders Orders - KAROLYN JOSEPH RESIDENT Procedure Category Date Status Time Sequential ALONZO 06/03/25 In Process Compression Device 17:49 Strict I & O ALONZO 06/04/25 In Process 08:32 Date of Service: Jun 04, 2025 Billing Provider: ALVERTO BAUER MD,[facility] RES[facility] Jun 04, 2025 15:51
--- NOTE | 2025-06-04 23:06 | DVHPN2 ---
Progress Note Date Seen: Jun 04, 2025 Medical Necessity Reason Pt with a Central, PICC or Fol: No Objective vital signs Vital Sign Date Time Temp Pulse Resp B/P (MAP) Pulse Ox O2 Delivery O2 Flow Rate FiO2 06/04/25 21:00 98.6 95 18 122/72 (89) 96 98.6 06/04/25 20:00 Nasal Cannula* 2 28 Total Intake and Output 06/03/25 06/03/25 06/04/25 15:00 23:00 07:00 Intake Total 1150 ml 150 ml 2315 ml Output Total 2100 ml Balance 1150 ml 150 ml 215 ml medications Current Medications Medications Dose Ordered Sig/Alejandra Route Start Time Stop Time Status Last Admin Dose Admin Acetaminophen 325 mg Q4HP PRN PO 06/03/25 06:00 Ondansetron HCl 4 mg Q4HP PRN IV 06/03/25 06:00 Sodium Chloride 1,000 ml @ 100 mls/hr Q10H IV 06/03/25 06:00 06/04/25 21:35 100 MLS/HR Ceftriaxone Sodium 50 ml @ 100 mls/hr DAILY@09 IV 06/03/25 09:00 06/04/25 09:25 100 MLS/HR Metronidazole 100 ml @ 100 mls/hr Q8HR IV 06/03/25 09:00 06/04/25 21:35 100 MLS/HR Ergocalciferol 50,000 unit Q7D PO 06/03/25 11:15 06/03/25 11:58 50,000 UNIT Hydromorphone HCl 0.25 mg Q4HPRN PRN IV 06/03/25 14:30 06/03/25 15:04 0.25 MG laboratory and microbiology Laboratory Tests 06/04/25 05:47 Test 06/04/25 05:47 Range/Units Serum Glucose 122 H 74-106 mg/dL Problem List/Assessment/Plan Problem List/Assessment/Plan AEBRILE VSS ABD SOT WOUNDS HEALING SUNNY DIET NO COMPLICATIONS CLEARED FOR DISCHARGE INSTRUCTIONS RE DIET ACTIVITY FUP GIVEN Plan discussed with: Patient ELIU LENNON MD Jun 04, 2025 23:06
[2025-06-05 00:30] VITALS: BP 119/70; PULSE 94; RESP 18; TEMP 98.7; O2SAT 99
[2025-06-05 05:00] VITALS: BP 102/68; PULSE 84; RESP 18; TEMP 98.2; O2SAT 94
[2025-06-05 06:51] LABS: Hematocrit 39.5 % (41.0-53.0); Hemoglobin 13.4 g/dL (13.5-17.5); Mean Corpuscular Hemoglobin 27.1 pg (28.0-32.0); Mean Corpuscular Volume 79.6 fL (80.0-100.0); Nucleated Red Blood Cells % 0.2 %
[2025-06-05 07:20] LABS: Albumin 4.1 g/dL (3.2-4.8); Alkaline Phosphatase 49 U/L (46-116); Anion Gap 10 (5-15); BUN/Creatinine Ratio 13.5 (10.0-20.0); Bilirubin, Total 0.8 mg/dL (0.2-1.0); Blood Urea Nitrogen 12 mg/dL (9-23); Calcium 9.0 mg/dL (8.7-10.4); Carbon Dioxide 26 mmol/L (20-31); Glucose 81 mg/dL (74-106); Magnesium 2.2 mg/dL (1.6-2.6); Potassium 3.9 mmol/L (3.5-5.1); Total Protein 6.3 g/dL (5.7-8.2)
[2025-06-05 07:32] LABS: Alanine Aminotransferase 42 U/L (7-40); Chloride 109 mmol/L (98-107); Sodium 145 mmol/L (136-145)
[2025-06-05 09:00] VITALS: BP 147/90; PULSE 66; RESP 20; TEMP 98.6; O2SAT 98
--- NOTE | 2025-06-05 09:55 | DVHDSRES ---
Discharge Summary Date of Admission Resident Creating Document: KAROLYN JOSEPH RESIDENT Jun 03, 2025 at 05:53 Date of Discharge: Jun 05, 2025 Admitting Diagnosis Acute complicated appendicitis Labs/Diagnostic Data: Laboratory Results Test 06/05/25 05:31 06/03/25 17:29 06/03/25 04:24 06/03/25 02:32 White Blood Count 9.4 10^3/uL (4.4-10.8) Red Blood Count 4.96 10^6/uL (4.5-5.90) Hemoglobin 13.4 g/dL (13.5-17.5) Hematocrit 39.5 % (41.0-53.0) Mean Corpuscular Volume 79.6 fL (80.0-100.0) Mean Corpuscular Hemoglobin 27.1 pg (28.0-32.0) Mean Corpuscular Hemoglobin Concent 34.1 g/dL (32.0-36.0) Red Cell Distribution Width 14.4 % (11.8-14.3) Platelet Count 223 10^3/uL (140-450) Mean Platelet Volume 8.0 fL (6.9-10.8) Neutrophils (%) (Auto) 64.1 % (37.0-80.0) Lymphocytes (%) (Auto) 27.6 % (10.0-50.0) Monocytes (%) (Auto) 7.7 % (0.0-12.0) Eosinophils (%) (Auto) 0.2 % (0.0-7.0) Basophils (%) (Auto) 0.4 % (0.0-2.0) Neutrophils # (Auto) 6.0 10 ^3/uL (1.6-8.6) Lymphocytes # (Auto) 2.6 10 ^3/uL (0.4-5.4) Monocytes # (Auto) 0.7 10 ^3/uL (0-1.3) Eosinophils # (Auto) 0 10 ^3/uL (0-0.8) Basophils # (Auto) 0 10 ^3/uL (0-0.2) Nucleated Red Blood Cells 0.2 % Sodium Level 145 mmol/L (136-145) Potassium Level 3.9 mmol/L (3.5-5.1) Chloride Level 109 mmol/L (98-107) Carbon Dioxide Level 26 mmol/L (20-31) Anion Gap 10 (5-15) Blood Urea Nitrogen 12 mg/dL (9-23) Creatinine 0.89 mg/dL (0.700-1.30) Glomerular Filtration Rate Calc 121 mL/min (>90) BUN/Creatinine Ratio 13.5 (10.0-20.0) Serum Glucose 81 mg/dL (74-106) Calcium Level 9.0 mg/dL (8.7-10.4) Magnesium Level 2.2 mg/dL (1.6-2.6) Total Bilirubin 0.8 mg/dL (0.2-1.0) Aspartate Amino Transferase (AST) 19 U/L (13-40) Alanine Aminotransferase (ALT) 42 U/L (7-40) Alkaline Phosphatase 49 U/L (46-116) Total Protein 6.3 g/dL (5.7-8.2) Albumin 4.1 g/dL (3.2-4.8) POC Glucose 115 mg/dl (70-106) Vitamin B12 Level 469 pg/mL (211-911) Vitamin D 25-Hydroxy 29.6 ng/mL (30.0-100) Prothrombin Time 10.9 sec (9.3-11.8) Prothrombin Time INR 1.03 (0.9-1.15) Activated Partial Thromboplast Time 28.0 SEC (24.5-34.5) Hemoglobin A1c 5.2 % A1C (<5.7) Lactic Acid Level 1.7 mmol/L (0.4-2.0) Phosphorus Level 2.1 mg/dL (2.4-5.1) Triglycerides Level 76 mg/dL (< 150) Cholesterol Level 174 mg/dL (< 200) LDL Cholesterol 131 mg/dL (< 100) HDL Cholesterol 43 mg/dL (40-59) Lipase 27 U/L (12-53) Thyroid Stimulating Hormone (TSH) 1.56 uIU/mL (0.55-4.78) Other Laboratory Tests 06/05/25 05:31 Brief Hx & Hospital Course: Neil Glaser is a 25-year-old male patient who presents to the ED with chief complaint of epigastric stabbing abdominal pain intensity 05/31 which then radiated to right lower quadrant, started on 06/02/2025 at 8:00 p.m., not related with food intake, associated later with nausea and vomiting with nonbloody emesis (had food content). Pain lasted until patient presented to the ED where he was given IV analgesics improving his pain to 6/10. Patient denies any other associated symptoms including fever, chills, diarrhea, recent travel, changing his diet and sick contacts. She lab workup revealed leukocytosis with WBC 12.2, with the abdomen and pelvis revealed- Findings are consistent with acute appendicitis. No evidence of perforation or periappendiceal abscess. Patient was seen by surgery, patient had laparoscopic appendectomy due to complicated appendicitis. Postoperatively patient was treated with IV antibiotic and IV fluid. Patient's symptoms improved. Patient was tolerating liquid diet well. Patient was being discharged with cefpodoxime and metronidazole. Patient was advised to follow up with the primary care physician, follow up with the discharge clinic and follow up with surgeon Dr. Rio Lennon. Patient's meds were sent to the pharmacy electronically. Patient was hemodynamically stable on discharge. Operations or Procedures [place] [address] Ph: [phone] DIAGNOSTIC IMAGING Diagnostic Imaging Report : [id number] Signed PATIENT: NEIL GLASER ACCT: [id number] UNIT: [id number] : 2000 LOC: ER ROOM / BED: / AGE / SEX: 25 / M ADM STATUS: REG ER SERVICE [id number] ORDERING PHYSICIAN: PETRA ROBERTSON RESIDENT PROCEDURE(s): ABPL - CT AB PEL WO CON-NO ORAL OR IV REASON: abdominal pain ORDER NUMBER(s): [id number], ACCESSION NUMBER(s): [id number] Exam: CT CT AB PEL WO CON-NO ORAL OR IV History: abdominal pain Comparison Study: None Technique: Multidetector spiral CT of the abdomen was performed from lung bases to pubic symphysis. Imaging was performed without IV contrast. Axial, coronal and sagittal multiplanar reformats were obtained from the axial data set by the technologist. Radiation Dose : 1. Abdomen/Pelvis: CTDIvol 25.22 mGy, DLP 1484.92 mGy*cm. Findings: Evaluation of solid organs is limited due to lack of intravenous contrast use. Lung Bases: No acute or significant lung base finding. Normal heart size. No pleural or pericardial effusion. Liver: The liver is normal in size. No focal lesions. Gallbladder and Biliary Tree: Unremarkable Spleen: Unremarkable Pancreas: The pancreas is grossly normal in appearance. Adrenal Glands: Unremarkable Kidneys: Kidneys are grossly normal without calculi or hydronephrosis. Bladder: Grossly unremarkable for degree of distention. Bowel: The stomach is grossly normal in appearance. Small bowel and colon are normal in caliber and distribution. The appendix is dilated measuring up to 2.3 cm with a proximal appendicolith, consistent with acute appendicitis. No evidence of perforation or periappendiceal abscess. Ascites: Absent Lymphadenopathy: No mesenteric, retroperitoneal or periportal lymphadenopathy. Abdominal Wall and Mesentery: Unremarkable. Vasculature: The visualized abdominal aorta is normal in size and caliber. Evaluation of abdominal and pelvic vessels is limited due to lack of intravenous contrast. Pelvic Organs: Unremarkable Musculoskeletal: No aggressive focal bony lesions, acute fractures or dislocation. Hardware within the right proximal femur status post ORIF. IMPRESSION: 1. Findings are consistent with acute appendicitis. 2. No evidence of perforation or periappendiceal abscess. Critical Result: Acute uncomplicated appendicitis Findings discussed with PETRA ROBERTSON at 06/03/2025 07:05 AM EST, and acknowledged receipt and understanding of the findings. Radiation optimization: All CT scans at this facility use at least one of these dose optimization techniques: automated exposure control mA and/or kV adjustment per patient size (includes targeted exams where dose is matched to clinical indication) or iterative reconstruction. ATED BY: JORGE SHAIKH MD DICTATED DATE/TIME: 06/03/25404 SIGNED BY: JORGE SHAIKH MD SIGNED DATE/TIME: 06/03/25404 CC: Patient: NEIL GLASER Acct: [id number] : 2000 Loc: OVERFLOW Age/Sex: 25/M Room: [facility]ER / Bed: A Attending Phy: KAROLYN JOSEPH RESIDENT DATE OF SURGERY: 06/03/2025 PREOPERATIVE DIAGNOSIS: Acute appendicitis with intraabdominal abscess. POSTOPERATIVE DIAGNOSIS: Acute appendicitis with intraabdominal abscess. PROCEDURE: Drainage of intraabdominal abscess with laparoscopic appendectomy. SURGEON: Rio Lennon MD MERCHANDISE PLANNER: None. ANESTHESIA: General. BLOOD LOSS: Close to 5 mL. DRAINS: No drains were used. COMPLICATIONS: No complications were encountered. DESCRIPTION OF PROCEDURE: The patient was prepped and draped in the usual sterile fashion in the supine position. A supraumbilical incision was applied. It was taken down to the fascia. The Veress needle was introduced and CO2 insufflation was started at a pressure of 15 mmHg. The needle was withdrawn and replaced by a 12 mm trocar and the telescope was introduced and the appendix was found to be acutely inflamed and distended with intraabdominal localized abscess formation and two 5 mm ports were applied more inferiorly, one above the symphysis and the third midway between the upper two. The patient was then placed in Trendelenburg and right lateral decubitus position. The camera was moved to the lowermost 5 mm port. The upper 2 ports were used for the surgery. The mesoappendix was identified. The base of the appendix was identified and transected using the Endo DANUTA stapling device. The mesoappendix was clipped at the base and divided distal to that using the Harmonic device. The appendix was released in this fashion and was retrieved from the supraumbilical wound in an EndoCatch bag without any complication. Hemostasis was secured. Irrigation fluid was removed. All the port sites were free from bleeding. EndoClose suture was used for the fascial closure of the supraumbilical wound. All the ports were withdrawn after all the CO2 was let out and the patient was placed in supine. The wounds were then brought together using 3-0 Monocryl suture in a subcuticular fashion. Surgical glue was applied. The patient tolerated the procedure well, was taken back to the recovery room in stable condition. MD HANSA Covarrubias/REFUGIO TID: [id number] RECEIPT: [id number] cc: KAROLYN JOSEPH DICTATED BY:RIO LENNON MD DICTATED DATE/TIME:06/03/25 0597 ELECTRONICALLY SIGNED BY: ELECTRONICALLY CO-SIGNED BY: Condition at Discharge: Stable Final Diagnosis/Problems List # Acute complicated appendicitis #Transaminitis #Vitamin-D deficiency #Hypophosphatemia #Dyslipidemia Discharge Disposition: Home Discharge Instruct/Medications Diet: See Comment Diet comment: Full liquid diet Activity: Light activity Follow Up/Referral: Please follow up with the discharge clinic as per schedule Please follow up with the primary care physician in 1-2 weeks Please follow up with the surgeon Dr. Rio Lennon in 2 weeks Medications: Cefpodoxime 100 mg p.o. b.i.d. for 7 days Metronidazole 500 mg p.o. t.i.d. for 7 days Pantoprazole as prescribed Ibuprofen p.r.n. as prescribed Scheduled Cefpodoxime Proxetil (Cefpodoxime Proxetil), 1 TAB PO BID Cephalexin Monohydrate (Cephalexin), 1 CAP PO QID Ibuprofen (Ibuprofen), 1 TAB PO TID Ibuprofen (Ibuprofen), 1 TAB PO Q6HPRN Metronidazole (Metronidazole), 500 MG PO TID Pantoprazole Sodium Sesquihydr (Pantoprazole Sodium), 40 MG PO DAILY Discharge Statement: "Patient was advised to return to the ER or call 911 if any headaches, dizziness, shortness of breath, chest pain, abdominal pain, bleeding, fevers, or worsening of medical condition. Patient was counseled about treatment plan, medications, possible side effects, patientverbalized understanding. All questions were answered to the best of my ability. This discharge took greater then 30 minutes in planning, reviewing documentation, counseling the patient, and discussing with other team members." ASSESSMENT ASSESSMENT Assessment Date of Service: Jun 05, 2025 Billing Provider: ALVERTO BAUER MD, MOHAMMED RESIDENT Jun 05, 2025 09:55
[2025-06-05 12:30] VITALS: BP 135/86; PULSE 87; RESP 20; TEMP 98.4; O2SAT 97
[2025-06-05] MEDS ORDERED: IBUP-1453 PO (13:19)
[2025-06-05] MEDS ORDERED: CEFP200T15 PO (13:19)
[2025-06-05] MEDS ORDERED: MET500T PO (13:19)
[2025-06-05] MEDS ORDERED: PANT40T PO (13:19)
== END 2025-06-05 14:38 | disposition home or self-care (01) | DRG 233 ==
LOC: ER 01:47 → OVERFLOW 05:53 → WEST WING 21:15 → TELE-WESTW 06-04 22:30 → WEST WING 06-05 09:44
PROVIDERS: ADMIT Student in an Organized Health Care Education/Training Program; ATTEND Student in an Organized Health Care Education/Training Program
PROC: 0DTJ4ZZ Resection of Appendix, Percutaneous Endoscopic Approach (ICD-10-PCS; principal; 2025-06-03 18:37)
DX: K35.33 Acute appendicitis with perforation, localized peritonitis, and gangrene, with abscess (principal); E83.39 Other disorders of phosphorus metabolism; E78.5 Hyperlipidemia, unspecified; R74.01 Elevation of levels of liver transaminase levels
CPT/HCPCS: 36415; 74176; 80053; 80061; 82306; 82607; 82962; 83036; 83605; 83690; 83735; 84100; 84443; 85025; 85610; 85730; 86850; 86900; 86901; 93005; 96365; 96372; 96375; G0378; J0131; J1100; J1885; J2250; J2405; J2470; J2704; J3490